=== PATIENT | male | born 1960 | race Caucasian/White ===

== ENCOUNTER 2023-02-11 12:30 | Inpatient (IN) | payer MEDICAID ==
[~2023-02-11] VITALS: Ht 182.9 cm; Wt 80.0 kg
[2023-02-11] MEDS ORDERED: epiNEPHrine 5 MG in NS 250ml IV.SOLN IV SCH (12:55)
[2023-02-11 13:13] VITALS: BP 96/48; PULSE 83; RESP 18; O2SAT 100
[2023-02-11 13:15] LABS: HEMATOCRIT 40.3 % (42.0-52.0); MEAN CORPUSCULAR HEMOGLOBIN 34.2 PG (27.0-31.0); MEAN CORPUSCULAR HGB CONC 32.3 g/dL (33.0-36.5); MEAN CORPUSCULAR VOLUME 105.7 FL (78-98); MEAN PLATELET VOLUME 8.5 FL (7.4-10.4); PLATELET COUNT 116 X10'3 (140-440); RED BLOOD COUNT 3.81 X10'6 (4.70-6.10); RED CELL DISTRIBUTION WIDTH 15.6 % (11.5-14.5); WHITE BLOOD COUNT 2.9 X10'3 (4.5-11.0)
[2023-02-11 13:19] LABS: ABG BASE EXCESS -26.7 mmol/L (-2.0-2.0); ABG HCO3 8.5 mmol/L (22.0-26.0); ABG OXYGEN SATURATION 98.1 % (94-97); ABG PCO2 (T) 61.6 mmHg (35.0-48.0); ABG PH (T) 6.757 (7.340-7.440); ABG PO2 (T) 221.4 mmHg (75.0-100.0); ALLEN'S TEST POSITIVE; FCOHb 0.3 % (0.0-3.9); FHHb 1.9 % (0.0-5.0); FMetHb 0.4 % (0.0-1.5); FO2Hb 97.4 % (94-97); MODE VENT - AC; PATIENT TEMPERATURE 37.1; PEEP 5 cm H2O; RESPIRATORY RATE 18 b/min; TIDAL VOLUME 450 mL; TOTAL HEMOGLOBIN 11.5 G/dl (14.0-17.9)
--- NOTE | 2023-02-11 13:22 | NUR ---
[facility] STATES DR DUNCAN SAID TO HOLD OFF ON COLDING MEASURES AT THIS TIME, COMMUICATED TO TO MD SCHNEIDER AND STAFF
[2023-02-11] MEDS ORDERED: ondansetron/PF 4mg/2ml inj IV PRN (13:25)
[2023-02-11] MEDS ORDERED: normal saline 1000ml 1,000 ML IV SCH (13:25)
[2023-02-11] MEDS ORDERED: sodium bicarbonate (8.4%) inj. 100 MEQ in dextrose 5%-water 1,000 ML IV SCH (13:25)
[2023-02-11] MEDS ORDERED: morphine 2 MG/ML inj. syringe IV PRN (13:25)
[2023-02-11] MEDS ORDERED: acetaminophen 325mg tablet PO PRN ×2 (13:25)
[2023-02-11] MEDS ORDERED: LidoCAINE 2% Topical Jelly 11mL syringe TOP ONE (13:25)
[2023-02-11] MEDS ORDERED: morphine 4 MG/ML inj SYRINge IV PRN (13:25)
[2023-02-11] MEDS ORDERED: magnesium hydroxide 30ml (MOM) UD suspension PO PRN (13:25)
[2023-02-11 13:32] LABS: ALANINE AMINOTRANSFERASE 163 U/L (12-78); ALKALINE PHOSPHATASE 116 IU/L (46-116); ANION GAP 23 (8-16); ASPARTATE AMINO TRANSFERASE 464 U/L (10-37); BILIRUBIN,TOTAL 0.8 MG/DL (0.1-1.0); BLOOD UREA NITROGEN 9 MG/DL (7-18); BUN/CREATININE RATIO 5.8 (10.0-20.0); CHLORIDE 106 MMOL/L (99-107); CREATININE 1.55 MG/DL (0.60-1.10); SODIUM 153 MMOL/L (135-145); TOTAL CARBON DIOXIDE 24.4 MMOL/L (24-32); eCRCL 48 ML/MIN; eGFR 46 ML/MIN
[2023-02-11 13:40] LABS: POTASSIUM 4.6 MMOL/L (3.5-5.1)
[2023-02-11 13:41] LABS: CALCIUM 12.6 MG/DL (8.5-10.1); GLUCOSE 42 MG/DL (70-104)
[2023-02-11] MEDS ORDERED: dextrose 50%-water 50ml dispensing syringe IV ONE ×2 (13:45→15:40)
[2023-02-11] MEDS ORDERED: iohexol 350MG/ML 100ml bottle IV ONE (13:50)
[2023-02-11] MEDS ORDERED: sodium bicarbonate 1meq/ml inj 150 ML in dextrose 5%-water 1,000 ML IV SCH (13:55)
[2023-02-11] MEDS ORDERED: FENTANYL-0.9 % NACL/PF 100 ML IV PRN (13:55)
[2023-02-11] MEDS ORDERED: sodium bicarbonate (8.4%) 1 mEq/ml syringe IV ONE (13:55)
[2023-02-11 13:59] LABS: NUCLEATED RED BLOOD CELLS 1 /100WBC (0-0); PLATELET ESTIMATE DECREASED; TOTAL CELLS COUNTED 100
[2023-02-11] MEDS ORDERED: sodium bicarbonate (8.4%) 1 mEq/ml syringe ONE (14:00)
[2023-02-11] MEDS ORDERED: epiNEPHrine 0.1mg/ml 10ml syringe ONE (14:00)
--- NOTE | 2023-02-11 14:08 | NUR ---
CALL TO PHARMACY FOR EPI DRIP, IV BAG IS EMPTY (SEE EMAR).
[2023-02-11 14:10] LABS: BILIRUBIN,URINE NEGATIVE (Neg); CLARITY,URINE SLIGHTLY CLOUDY (Clear); COLOR,URINE YELLOW (Yellow); GLUCOSE, URINE NEGATIVE (Neg); KETONES,URINE NEGATIVE (Neg); LEUKOCYTE ESTERASE ,URINE NEGATIVE (Neg); NITRITES, URINE NEGATIVE (Neg); OCCULT BLOOD,URINE TRACE-INTACT (Neg); PROTEIN,URINE NEGATIVE (Neg); UROBILINOGEN,URINE 0.2 E.U/dL (0.2-1.0)
[2023-02-11 14:13] LABS: UA COLLECTION TYPE FOLEY CATH
[2023-02-11 14:15] LABS: URINE AMPHETAMINE SCREEN NEGATIVE (Neg); URINE BARBITUATE SCREEN NEGATIVE (Neg); URINE BENZODIAZEPINES SCREEN NEGATIVE (Neg); URINE CANNABINOID SCREEN POSITIVE (Neg); URINE COCAINE SCREEN NEGATIVE (Neg); URINE METHADONE SCREEN NEGATIVE (Neg); URINE OPIATE SCREEN NEGATIVE (Neg); URINE PHENCYCLIDINE SCREEN NEGATIVE (Neg)
[2023-02-11] MEDS ORDERED: epiNEPHrine 10 MG in NS 250ml IV SOLUTION IV SCH (14:15)
[2023-02-11 14:18] LABS: MUCUS STRANDS MANY /LPF (Neg); SQUAMOUS EPITHELIAL CELL,UR MODERATE /LPF (FEW)
[2023-02-11 14:19] LABS: WBC,URINE 50-100 /HPF (0-4)
[2023-02-11 14:20] LABS: BACTERIA,URINE NONE SEEN /HPF (Neg); CAL OXALATE CRYSTALS 4+ /HPF (NEGATIVE); WBC CLUMPS,URINE FEW /HPF (NEGATIVE)
[2023-02-11 14:23] LABS: MAGNESIUM 2.8 MG/DL (1.5-2.4)
[2023-02-11] MEDS ORDERED: NORepinephrine 8mg/ 250ml NS 250 ML IV PRN ×2 (14:25→14:29)
--- NOTE | 2023-02-11 15:05 | NUR ---
PATIENT TAWNY HR 35, CPR STARTED, SEE CODE SHEET.
[2023-02-11 15:22] LABS: ABG BASE EXCESS -8.9 mmol/L (-2.0-2.0); ABG OXYGEN SATURATION 93.6 % (94-97); ABG PCO2 (T) 53.7 mmHg (35.0-48.0); ABG PH (T) 7.179 (7.340-7.440); ABG PO2 (T) 87.7 mmHg (75.0-100.0); ALLEN'S TEST POSITIVE; FCOHb 0.3 % (0.0-3.9); FHHb 6.4 % (0.0-5.0); FLOW 15 L/min; FMetHb 0.4 % (0.0-1.5); FO2Hb 92.9 % (94-97); MODE RESUS BAG; PATIENT TEMPERATURE 35.2; TOTAL HEMOGLOBIN 10.7 G/dl (14.0-17.9)
[2023-02-11] MEDS ORDERED: ketamine 50 mg/ml 10ml vial ONE (15:24)
[2023-02-11] MEDS ORDERED: vasopressin inj. 40 UNIT in dextrose 5%-water 50ml 38 ML IV SCH (15:30)
[2023-02-11] MEDS ORDERED: ketamine 50 mg/ml 10ml vial IV ONE (15:30)
[2023-02-11] MEDS ORDERED: DOPamine 400mg/D5W 250ml 250 ML IV SCH (15:30)
[2023-02-11] MEDS ORDERED: vasopressin inj. 40 UNIT in normal saline 50ml IV soln 38 ML IV SCH (15:33)
[2023-02-11] MEDS ORDERED: rocuronium 10mg/ml inj IV ONE (15:40)
--- NOTE | 2023-02-11 15:44 | NUR ---
DR DUNCAN AT BEDSIDE TO ASSESS PATIENT AT THIS TIME.
[2023-02-11 15:45] VITALS: BP 98/56; TEMP 95.2
--- NOTE | 2023-02-11 16:00 | NUR ---
Patient was admitted to ICU from the ER. Dr. Valadez informed family member of condition. Patient's mother decided on comfort care.
[2023-02-11 16:16] VITALS: PULSE 109; RESP 24; O2SAT 97
[2023-02-11] MEDS ORDERED: morphine 10mg/ml inj. IV PRN (16:40)
[2023-02-11] MEDS ORDERED: morphine 10mg/0.5ml (conc. morphine) oral syringe PO PRN (16:40)
[2023-02-11] MEDS ORDERED: LORazepam 2 mg/ml vial IV PRN (16:40)
--- NOTE | 2023-02-11 16:53 | NUR ---
Patient was extubated to comfort measures and made DNR, per family request. IV medications discontinued and patient take off telemetry monitoring.
--- NOTE | 2023-02-11 17:05 | NUR ---
Patient Asystolic, time of pronounce by . Patient's mother present at bedside. [place] transplant donor network notified. home notified. home present and retrieved body today at [id number]
[2023-02-11] MEDS ORDERED: UNABLE TO OBTAIN (17:39)
[2023-02-11] MEDS ORDERED: enoxaparin 40mg/0.4ml syringe SQ SCH (20:00)
[2023-02-11] MEDS ORDERED: famotidine/PF 10 mg/ml inj IV SCH (20:00)
--- NOTE | 2023-02-12 04:15 | NUR ---
POSITIVE BLOOD CULTURE RESULT TAKEN FROM LAB, PT
== END 2023-02-11 18:43 | DRG 720 ==
LOC: ER 12:31 → ED HOLD 13:33 → ICU 2S 16:30
PROVIDERS: ADMIT Internal Medicine Critical Care Medicine; ATTEND Internal Medicine Critical Care Medicine
PROC: 0BH17EZ Insertion of Endotracheal Airway into Trachea, Via Natural or Artificial Opening (ICD-10-PCS; principal; 2023-02-11)
PROC: 5A12012 Performance of Cardiac Output, Single, Manual (ICD-10-PCS; 2023-02-11)
PROC: 5A1935Z Respiratory Ventilation, Less than 24 Consecutive Hours (ICD-10-PCS; 2023-02-11)
PROC: 5A2204Z Restoration of Cardiac Rhythm, Single (ICD-10-PCS; 2023-02-11)
PROC: BW251ZZ Computerized Tomography (CT Scan) of Chest, Abdomen and Pelvis using Low Osmolar Contrast (ICD-10-PCS; 2023-02-11)
DX: A41.9 Sepsis, unspecified organism (principal); J96.01 Acute respiratory failure with hypoxia; I46.9 Cardiac arrest, cause unspecified; I21.A1 Myocardial infarction type 2; E87.29 Other acidosis; Z66 Do not resuscitate; R65.21 Severe sepsis with septic shock; I31.39 Other pericardial effusion (noninflammatory); J90 Pleural effusion, not elsewhere classified; K56.609 Unspecified intestinal obstruction, unspecified as to partial versus complete obstruction; K80.20 Calculus of gallbladder without cholecystitis without obstruction; N39.0 Urinary tract infection, site not specified; E16.2 Hypoglycemia, unspecified; I47.20 Ventricular tachycardia, unspecified; Z51.5 Encounter for palliative care
CPT/HCPCS: 36415; 36600; 70450; 71045; 71275; 74177; 80053; 80305; 81001; 82803; 82948; 83605; 83735; 83880; 84484; 85007; 85018; 85025; 87040; 87088; 92950; 94002; 94760; 94799; 99285; A6213; C1751; C1758; G0378; J0171; J1265; J3010; J3490; J7030; J7050; J7070; Q9967